=== PATIENT | male | born 1955 | race Caucasian/White ===

== ENCOUNTER → 2017-10-22 11:23 | Outpatient (CLI) | payer OTHER, SELFPAY ==
[2017-10-22 12:33] LABS: Creatinine Urine Random 159.7 mg/dL
[2017-10-22 12:39] LABS: Microalbumi Creatinin Ratio Ur 4.3 ug/mg CR (<30); Microalbumin Urine Random 0.7 mg/dL (0-1.6)
[2017-10-22 12:41] LABS: Hematocrit 39.6 % (41-53); Hemoglobin 13.8 g/dL (13.5-17.5); Mean Corpuscular HGB Conc 34.9 % (30-36); Mean Corpuscular Hemoglobin 31.4 PG (26-34); Mean Corpuscular Volume 89.9 fL (80-100); Platelet Count 254 X10^3/uL (150-400); Red Cell Distribution Width 13.4 % (11.6-14.8); White Blood Cell Count 4.6 X10^3/uL (4.5-11.0)
[2017-10-22 12:42] LABS: Add Manual Diff / Slide Review YES
[2017-10-22 12:52] LABS: Hemoglobin A1C% w Est Avg Glu 6.3 % (4.0-6.0)
[2017-10-22 13:00] LABS: Cholesterol 200 mg/dL (140-199); HDL Cholesterol 54 mg/dL (40-60); LDL Cholesterol Calculated 133 mg/dL (<100); Triglycerides 67 mg/dL (35-150)
[2017-10-22 13:25] LABS: Neutrophils Absolute Manual 2024 /uL (3000-5900); Total Cells Counted 100
== END ==
PROVIDERS: PCP Family Medicine; Visit Provider Family Medicine
DX: Z12.5 Encounter for screening for malignant neoplasm of prostate (principal); Z51.81 Encounter for therapeutic drug level monitoring; E11.9 Type 2 diabetes mellitus without complications
CPT/HCPCS: 36415; 80061; 82043; 82570; 83036; 85025